=== PATIENT | female | born 1975 | race Caucasian/White ===

== ENCOUNTER → 2016-10-29 | Outpatient (CLI) | payer OTHER | LOC: US 10-24 14:30 | DX: R10.0 Acute abdomen (principal) ==

== ENCOUNTER → 2016-11-28 | Outpatient (CLI) | payer OTHER | LOC: MAMO 10:00 → US 11:00 | DX: Z12.31 Encounter for screening mammogram for malignant neoplasm of breast (principal); Z78.0 Asymptomatic menopausal state | CPT/HCPCS: G0202 ==